=== PATIENT | female | born 1930 | race Caucasian/White ===

== ENCOUNTER 2020-12-06 12:27 | Inpatient (IN) ==
[2020-12-06] MEDS ORDERED: 0.9 % Sodium Chloride 1,000 ML IVC ONE (12:47)
[2020-12-06 13:16] LABS: Basophils % 0.3 %; Hematocrit 44.1 % (35.3-44.9); Immature Granulocytes % 1.1 % (0-4); Lymphocytes # 0.6 K/mcL (0.6-4.6); Lymphocytes % 5.4 %; Mean Corpuscular Hemoglobin 29.6 pg (28.0-33.3); Mean Platelet Volume 9.8 fL (9.4-12.4); Monocytes # 0.2 K/mcL (0.0-1.3); Monocytes % 2.3 %; Neutrophils # 9.5 K/mcL (1.6-8.9); Platelet Count 329 K/mcL (140-400); Red Blood Count 5.07 M/mcL (3.82-4.97); Red Cell Distribution Width 12.7 % (11.5-14.5); Segmented Neutrophils % 90.9 %; White Blood Count 10.5 K/mcL (4.3-11.1)
[2020-12-06 13:27] LABS: INR 1.1; Prothrombin Time 12.4 Seconds (9.4-12.1)
[2020-12-06 13:28] LABS: Activated Partial Thrombo Time 28.9 Seconds (26.0-36.0)
[2020-12-06 14:03] LABS: Bacteria,Urine Many per hpf (None-Few); Bilirubin,Urine Negative (Negative); Blood,Urine Trace (Negative); Clarity,Urine Clear (Clear); Color,Urine Light-Yellow (Yellow); Glucose,Urine (UA) Normal (Normal); Hyaline Casts,Urine Few per lpf (None Seen); Ketones,Urine Negative (Negative); Leukocyte Esterase,Urine Negative (Negative); Mucus,Urine Few per lpf (None-Few); Nitrite,Urine Positive (Negative); Protein,Urine Trace mg/dL (Neg-Trace); RBC,Urine 0-3 per hpf (0-3); Specific Gravity,Urine 1.013 (1.010-1.025); Squamous Epithelial Cell,Urine Few per hpf (None-Few); Urobilinogen,Urine Normal (Normal); WBC,Urine 0-3 per hpf (0-3)
[2020-12-06 14:07] LABS: Alanine Aminotransferase 12 Units/L (7-52); Albumin 3.6 g/dL (3.5-5.7); Albumin/Globulin Ratio 1.2 (1.1-2.2); Alkaline Phosphatase 67 Units/L (34-104); Aspartate Amino Transferase 24 Units/L (13-39); BUN/Creatinine Ratio 30 (6-26); Bilirubin,Direct 0.1 mg/dL (0.0-0.2); Bilirubin,Indirect 0.3 mg/dL (0.0-1.0); Bilirubin,Total 0.4 mg/dL (0.3-1.0); Blood Urea Nitrogen 31 mg/dL (8-23); C-Reactive Protein 152 mg/L (Less than 10); Calcium 9.1 mg/dL (8.6-10.3); Carbon Dioxide 24 mEq/L (23-29); Chloride 95 mEq/L (98-107); Ferritin 547 ng/mL (10-120); Globulin 3.1 g/dL (2.4-3.5); Glucose 152 mg/dL (70-105); Lactate Dehydrogenase 250 Units/L (140-271); Magnesium 1.4 mg/dL (1.6-2.6); Osmolality,Calculated 286 (280-300); Phosphorous 2.4 mg/dL (2.7-4.5); Potassium 3.3 mEq/L (3.5-5.1); Sodium 133 mEq/L (136-145); Total Protein 6.7 g/dL (6.4-8.9); eGFR For African Americans > 60 (> 60); eGFR For Non-African Americans 51 (> 60)
[2020-12-06] MEDS ORDERED: cefTRIAXone 1,000 MG in 0.9 % Sodium Chloride Mini Bag 100 ML IVPB ONE (14:34)
[2020-12-06] MEDS ORDERED: Aspirin 81 MG TAB.CHEW PO STA (14:36)
[2020-12-06] MEDS ORDERED: 0.9 % Sodium Chloride 1,000 ML IVC SCH (14:45)
[2020-12-06] MEDS ORDERED: Magnesium Sulfate 1 GM/102 ML PIGGYBACK IVPB ONE (15:07)
[2020-12-06] MEDS ORDERED: Ondansetron 4 MG/2 ML VIAL IVP PRN (15:10)
[2020-12-06] MEDS ORDERED: Acetaminophen 325 MG TABLET PO PRN (15:10)
[2020-12-06] MEDS ORDERED: Naloxone 0.4 MG/ML INJ IVP PRN (15:10)
[2020-12-06] MEDS ORDERED: *HR* Dextrose 50 % in Water (Vial) 50 ML VIAL IVP PRN (15:14)
[2020-12-06] MEDS ORDERED: Dextrose Gel 15 GM/37.5 ML TUBE PO PRN ×2 (15:14)
[2020-12-06] MEDS ORDERED: D5% in Water 1,000 ML IVC PRN (15:14)
[2020-12-06] MEDS ORDERED: Azithromycin 500 MG in 0.9 % Sodium Chloride 250 ML IVPB SCH (16:00)
[2020-12-06] MEDS ORDERED: Benzonatate 100 MG CAPSULE PO PRN (16:16)
[2020-12-06] MEDS: Insulin LISPRO 300 UNITS/3 ML VIAL SUBQ SCH (17:22)
[2020-12-06] MEDS: *HR* Heparin 5,000 UNIT/ML VIAL SQ SCH (19:38)
[2020-12-07 03:05] LABS: Basophils % 0.4 %; Hematocrit 40.7 % (35.3-44.9); Immature Granulocytes % 1.9 % (0-4); Lymphocytes # 1.1 K/mcL (0.6-4.6); Lymphocytes % 13.3 %; Mean Corpuscular HGB Conc 34.4 g/dL (31.6-35.5); Mean Corpuscular Hemoglobin 29.8 pg (28.0-33.3); Mean Corpuscular Volume 86.6 fL (83.0-100.0); Mean Platelet Volume 9.7 fL (9.4-12.4); Monocytes # 0.3 K/mcL (0.0-1.3); Monocytes % 3.2 %; Neutrophils # 6.8 K/mcL (1.6-8.9); Platelet Count 308 K/mcL (140-400); Red Cell Distribution Width 12.4 % (11.5-14.5); Segmented Neutrophils % 81.2 %; White Blood Count 8.4 K/mcL (4.3-11.1)
[2020-12-07 03:31] LABS: BUN/Creatinine Ratio 28 (6-26); Blood Urea Nitrogen 20 mg/dL (8-23); Carbon Dioxide 22 mEq/L (23-29); Chloride 102 mEq/L (98-107); Glucose 121 mg/dL (70-105); Osmolality,Calculated 286 (280-300); Potassium 2.9 mEq/L (3.5-5.1); Sodium 136 mEq/L (136-145); Troponin I 0.11 ng/mL (< 0.04); eGFR For African Americans > 60 (> 60); eGFR For Non-African Americans > 60 (> 60)
[2020-12-07 03:40] LABS: Calcium 7.9 mg/dL (8.6-10.3); Chol/HDL Ratio 2.2 (0-4.9); Cholesterol 80 mg/dL (< 200); HDL Cholesterol 37 mg/dL (40-59); LDL Cholesterol,Calculated 25 mg/dL (< 100); Magnesium 1.4 mg/dL (1.6-2.6); Triglycerides 90 mg/dL (< 150)
[2020-12-07] MEDS: *HR* Heparin 5,000 UNIT/ML VIAL SQ SCH ×2 (06:04→17:53)
[2020-12-07] MEDS ORDERED: cefTRIAXone 1,000 MG in Water for inj. (sterile) 10 ML IVP SCH (09:00)
[2020-12-07] MEDS ORDERED: Metoprolol XL (24 HR) Succ 50 MG TAB.ER.24H PO SCH (09:00)
[2020-12-07] MEDS: Cyanocobalamin (B-12) 1,000 MCG TABLET PO SCH (09:29)
[2020-12-07] MEDS: Cholecalciferol (D-3) 1,000 UNIT (25MCG) TABLET PO SCH (09:29)
[2020-12-07] MEDS: amLODIPine 5 MG TABLET PO SCH (09:30)
[2020-12-07] MEDS: Magnesium Oxide 400 MG TABLET PO SCH ×2 (09:31→23:13)
[2020-12-07] MEDS: cloNIDine HCL 0.1 MG TABLET PO SCH ×2 (09:31→23:13)
[2020-12-07] MEDS: Insulin LISPRO 300 UNITS/3 ML VIAL SUBQ SCH ×3 (09:33→17:55)
[2020-12-07] MEDS ORDERED: Perflutren Lipid Microsphere 1.3 ML in 0.9 % Sodium Chloride 8.7 ML IVP PRN (09:34)
[2020-12-07] MEDS ORDERED: Nitroglycerin 0.4 MG TAB.SUBL SL PRN (09:46)
[2020-12-07] MEDS: Aspirin 81 MG TAB.CHEW PO SCH (17:54)
[2020-12-07] MEDS: lisinopriL 20 MG TABLET PO SCH (17:54)
[2020-12-07] MEDS: Azithromycin 250 MG TABLET PO SCH (17:54)
[2020-12-07 19:35] LABS: Magnesium 1.6 mg/dL (1.6-2.6); Potassium 3.8 mEq/L (3.5-5.1)
[2020-12-08] MEDS: *HR* Heparin 5,000 UNIT/ML VIAL SQ SCH ×2 (04:40→18:02)
[2020-12-08 05:50] LABS: Basophils % 0.6 %; Hematocrit 43.9 % (35.3-44.9); Hemoglobin 15.2 g/dL (11.5-15.4); Immature Granulocytes % 2.4 % (0-4); Lymphocytes % 13.6 %; Mean Corpuscular HGB Conc 34.6 g/dL (31.6-35.5); Mean Corpuscular Hemoglobin 29.9 pg (28.0-33.3); Mean Corpuscular Volume 86.4 fL (83.0-100.0); Mean Platelet Volume 9.2 fL (9.4-12.4); Monocytes # 0.4 K/mcL (0.0-1.3); Monocytes % 5.9 %; Neutrophils # 5.5 K/mcL (1.6-8.9); Platelet Count 356 K/mcL (140-400); Red Blood Count 5.08 M/mcL (3.82-4.97); Red Cell Distribution Width 12.4 % (11.5-14.5); Segmented Neutrophils % 77.5 %; White Blood Count 7.1 K/mcL (4.3-11.1)
[2020-12-08 08:00] LABS: BUN/Creatinine Ratio 18 (6-26); Blood Urea Nitrogen 11 mg/dL (8-23); Calcium 8.9 mg/dL (8.6-10.3); Carbon Dioxide 23 mEq/L (23-29); Chloride 102 mEq/L (98-107); Glucose 141 mg/dL (70-105); Magnesium 1.8 mg/dL (1.6-2.6); Osmolality,Calculated 284 (280-300); Potassium 3.4 mEq/L (3.5-5.1); Sodium 136 mEq/L (136-145); eGFR For African Americans > 60 (> 60); eGFR For Non-African Americans > 60 (> 60)
[2020-12-08] MEDS: Cholecalciferol (D-3) 1,000 UNIT (25MCG) TABLET PO SCH (08:14)
[2020-12-08] MEDS: Azithromycin 250 MG TABLET PO SCH (08:14)
[2020-12-08] MEDS: Aspirin 81 MG TAB.CHEW PO SCH (08:14)
[2020-12-08] MEDS: Cyanocobalamin (B-12) 1,000 MCG TABLET PO SCH (08:14)
[2020-12-08] MEDS: lisinopriL 20 MG TABLET PO SCH (08:14)
[2020-12-08] MEDS: cloNIDine HCL 0.1 MG TABLET PO SCH ×2 (08:15→20:43)
[2020-12-08] MEDS: Metoprolol XL (24 HR) Succ 50 MG TAB.ER.24H PO SCH (08:15)
[2020-12-08] MEDS: amLODIPine 5 MG TABLET PO SCH (08:15)
[2020-12-08] MEDS: Magnesium Oxide 400 MG TABLET PO SCH ×2 (08:16→20:41)
[2020-12-08] MEDS: Insulin LISPRO 300 UNITS/3 ML VIAL SUBQ SCH ×3 (08:33→18:04)
[2020-12-08] MEDS ORDERED: levoFLOXacin 750 MG TABLET PO SCH ×2 (09:00→14:00)
[2020-12-08] MEDS: Gabapentin 100 MG CAPSULE PO SCH (20:41)
[2020-12-09] MEDS: *HR* Heparin 5,000 UNIT/ML VIAL SQ SCH ×2 (06:25→18:43)
[2020-12-09 06:56] LABS: Basophils % 0.4 %; Hematocrit 40.6 % (35.3-44.9); Hemoglobin 14.2 g/dL (11.5-15.4); Immature Granulocytes % 2.5 % (0-4); Lymphocytes # 0.9 K/mcL (0.6-4.6); Lymphocytes % 13.3 %; Mean Corpuscular Hemoglobin 29.8 pg (28.0-33.3); Mean Corpuscular Volume 85.3 fL (83.0-100.0); Mean Platelet Volume 9.2 fL (9.4-12.4); Monocytes # 0.5 K/mcL (0.0-1.3); Monocytes % 7.9 %; Neutrophils # 5.2 K/mcL (1.6-8.9); Platelet Count 437 K/mcL (140-400); Red Blood Count 4.76 M/mcL (3.82-4.97); Red Cell Distribution Width 12.4 % (11.5-14.5); Segmented Neutrophils % 75.9 %; White Blood Count 6.8 K/mcL (4.3-11.1)
[2020-12-09 07:18] LABS: BUN/Creatinine Ratio 18 (6-26); Blood Urea Nitrogen 13 mg/dL (8-23); Calcium 8.9 mg/dL (8.6-10.3); Carbon Dioxide 24 mEq/L (23-29); Chloride 100 mEq/L (98-107); Glucose 114 mg/dL (70-105); Osmolality,Calculated 279 (280-300); Potassium 3.6 mEq/L (3.5-5.1); Sodium 134 mEq/L (136-145); eGFR For African Americans > 60 (> 60); eGFR For Non-African Americans > 60 (> 60)
[2020-12-09] MEDS ORDERED: levoFLOXacin 750 MG TABLET PO SCH ×2 (09:00)
[2020-12-09] MEDS: Insulin LISPRO 300 UNITS/3 ML VIAL SUBQ SCH ×3 (10:06→18:44)
[2020-12-09] MEDS: Cholecalciferol (D-3) 1,000 UNIT (25MCG) TABLET PO SCH (10:09)
[2020-12-09] MEDS: Metoprolol XL (24 HR) Succ 50 MG TAB.ER.24H PO SCH (10:09)
[2020-12-09] MEDS: cloNIDine HCL 0.1 MG TABLET PO SCH ×3 (10:10→23:44)
[2020-12-09] MEDS: Gabapentin 100 MG CAPSULE PO SCH ×2 (10:10→23:44)
[2020-12-09] MEDS: Cyanocobalamin (B-12) 1,000 MCG TABLET PO SCH (10:10)
[2020-12-09] MEDS: Aspirin 81 MG TAB.CHEW PO SCH (10:10)
[2020-12-09] MEDS: Magnesium Oxide 400 MG TABLET PO SCH ×2 (10:11→23:44)
[2020-12-09] MEDS: lisinopriL 20 MG TABLET PO SCH (10:11)
[2020-12-09] MEDS: Azithromycin 250 MG TABLET PO SCH (10:11)
[2020-12-09] MEDS: amLODIPine 5 MG TABLET PO SCH (10:11)
[2020-12-09] MEDS: Lactobacillus 1 EACH CAP.SPRINK PO SCH (23:44)
[2020-12-10] MEDS: *HR* Heparin 5,000 UNIT/ML VIAL SQ SCH ×2 (06:56→17:16)
[2020-12-10] MEDS: lisinopriL 20 MG TABLET PO SCH (09:16)
[2020-12-10] MEDS: Cholecalciferol (D-3) 1,000 UNIT (25MCG) TABLET PO SCH (09:16)
[2020-12-10] MEDS: Lactobacillus 1 EACH CAP.SPRINK PO SCH ×2 (09:16→21:59)
[2020-12-10] MEDS: amLODIPine 5 MG TABLET PO SCH (09:17)
[2020-12-10] MEDS: Metoprolol XL (24 HR) Succ 50 MG TAB.ER.24H PO SCH (09:17)
[2020-12-10] MEDS: Aspirin 81 MG TAB.CHEW PO SCH (09:17)
[2020-12-10] MEDS: Azithromycin 250 MG TABLET PO SCH (09:17)
[2020-12-10] MEDS: Magnesium Oxide 400 MG TABLET PO SCH ×2 (09:17→21:59)
[2020-12-10] MEDS: cloNIDine HCL 0.1 MG TABLET PO SCH ×3 (09:17→21:59)
[2020-12-10] MEDS: Gabapentin 100 MG CAPSULE PO SCH ×2 (09:17→21:59)
[2020-12-10] MEDS: Cyanocobalamin (B-12) 1,000 MCG TABLET PO SCH (09:18)
[2020-12-10] MEDS: Insulin LISPRO 300 UNITS/3 ML VIAL SUBQ SCH ×3 (11:29→19:09)
[2020-12-11] MEDS: *HR* Heparin 5,000 UNIT/ML VIAL SQ SCH ×2 (05:23→17:40)
[2020-12-11 06:11] LABS: Calcium 8.8 mg/dL (8.6-10.3); Potassium 4.1 mEq/L (3.5-5.1)
[2020-12-11] MEDS: Metoprolol XL (24 HR) Succ 50 MG TAB.ER.24H PO SCH (08:57)
[2020-12-11] MEDS: lisinopriL 20 MG TABLET PO SCH (08:57)
[2020-12-11] MEDS: Lactobacillus 1 EACH CAP.SPRINK PO SCH ×2 (08:57→21:55)
[2020-12-11] MEDS: amLODIPine 5 MG TABLET PO SCH (08:57)
[2020-12-11] MEDS: Cyanocobalamin (B-12) 1,000 MCG TABLET PO SCH (08:59)
[2020-12-11] MEDS: cloNIDine HCL 0.1 MG TABLET PO SCH ×3 (08:59→21:55)
[2020-12-11] MEDS: Azithromycin 250 MG TABLET PO SCH (08:59)
[2020-12-11] MEDS: Aspirin 81 MG TAB.CHEW PO SCH (08:59)
[2020-12-11] MEDS: Cholecalciferol (D-3) 1,000 UNIT (25MCG) TABLET PO SCH (08:59)
[2020-12-11] MEDS: Magnesium Oxide 400 MG TABLET PO SCH ×2 (08:59→21:55)
[2020-12-11] MEDS: Gabapentin 100 MG CAPSULE PO SCH ×2 (08:59→21:55)
[2020-12-11] MEDS: Insulin LISPRO 300 UNITS/3 ML VIAL SUBQ SCH ×3 (09:00→17:49)
[2020-12-12] MEDS: *HR* Heparin 5,000 UNIT/ML VIAL SQ SCH (06:26)
[2020-12-12 07:29] VITALS: BP 145/73; PULSE 72; TEMP 98.3; O2SAT 91
[2020-12-12] MEDS ORDERED: Amoxicillin/Clavulanate 500 MG TABLET PO SCH (08:00)
[2020-12-12] MEDS ORDERED: amLODIPine 5 MG TABLET PO SCH (09:00)
[2020-12-12] MEDS: Insulin LISPRO 300 UNITS/3 ML VIAL SUBQ SCH (09:21)
[2020-12-12] MEDS: Cholecalciferol (D-3) 1,000 UNIT (25MCG) TABLET PO SCH (09:47)
[2020-12-12] MEDS: Lactobacillus 1 EACH CAP.SPRINK PO SCH (09:47)
[2020-12-12] MEDS: Cyanocobalamin (B-12) 1,000 MCG TABLET PO SCH (09:48)
[2020-12-12] MEDS: Metoprolol XL (24 HR) Succ 50 MG TAB.ER.24H PO SCH (09:48)
[2020-12-12] MEDS: Aspirin 81 MG TAB.CHEW PO SCH (09:48)
[2020-12-12] MEDS: cloNIDine HCL 0.1 MG TABLET PO SCH (09:48)
[2020-12-12] MEDS: lisinopriL 20 MG TABLET PO SCH (09:48)
[2020-12-12] MEDS: Magnesium Oxide 400 MG TABLET PO SCH (09:48)
[2020-12-12] MEDS: Gabapentin 100 MG CAPSULE PO SCH (09:48)
== END 2020-12-12 12:17 | disposition home health service (06) | DRG 871 ==
LOC: 3NENU 12:27 → EMEROOARM 12:27 → 3NENU 18:44 → SUATTDRO 20:44 → 3NENU 20:50
PROVIDERS: ADMIT Internal Medicine; ATTEND General Practice